=== PATIENT | female | born 1970 | race Hispanic/Latino ===

== ENCOUNTER 2017-06-30 16:45 | Emergency (ER) | payer MEDICARE ==
[~2017-06-30 16:45] MED LIST: BUPR100T6 PO; CALC-1105 PO; DOCU100C33 PO; ENAL1TAB11 PO; EVER10TA PO; EXEM25TA PO; FA/M1TAB32 PO; HYDR-4064 PO; LORA2TAB2 PO; POLY119P2 PO
[2017-06-30] MEDS ORDERED: ACETAMINOPHEN EXTRA STRENGTH 500 MG TABLET ONE (17:23)
[2017-06-30] MEDS ORDERED: TETANUS/DIPHTHERIA TOXOID [ADULT] 0.5 ML VIAL IM ONE (17:23)
[2017-06-30] MEDS ORDERED: LIDOCAINE 2%-EPI 1:200,000 20 ML VIAL IJ ONE (17:23)
== END 2017-06-30 19:58 | disposition home or self-care (01) ==
LOC: EDH 16:45
DX: S06.0X0A Concussion without loss of consciousness, initial encounter (principal); S01.81XA Laceration without foreign body of other part of head, initial encounter; S80.212A Abrasion, left knee, initial encounter; S50.311A Abrasion of right elbow, initial encounter; C79.51 Secondary malignant neoplasm of bone; I10 Essential (primary) hypertension; Z85.3 Personal history of malignant neoplasm of breast; Z88.7 Allergy status to serum and vaccine; W18.39XA Other fall on same level, initial encounter; Y93.01 Activity, walking, marching and hiking; Y92.89 Other specified places as the place of occurrence of the external cause; Y99.8 Other external cause status
CPT/HCPCS: 12052; 70450; 72125; 90471; 90714; 99284; J3490

== ENCOUNTER 2017-08-02 10:35 | Emergency (ER) | payer MEDICARE ==
[2017-08-02] MEDS ORDERED: HYDROMORPHONE 1 MG/1 ML AMP ONE (10:55)
[2017-08-02] MEDS ORDERED: ONDANSETRON ODT 4 MG TAB ONE (10:55)
== END 2017-08-02 12:29 | disposition home or self-care (01) ==
LOC: EDH 10:35
DX: C50.919 Malignant neoplasm of unspecified site of unspecified female breast (principal); M54.9 Dorsalgia, unspecified; I10 Essential (primary) hypertension
CPT/HCPCS: 72128; 96372; 99284; J1170

== ENCOUNTER 2019-01-12 10:26 | Observation (INO) | payer MEDICARE ==
[~2019-01-12] VITALS: Ht 167.6 cm; Wt 65.8 kg
[2019-01-12 11:04] LABS: BASOPHILS % (AUTO) 1.3 % (0.0-5.0); EOSINOPHILS % (AUTO) 0.3 % (0.0-8.0); HEMATOCRIT 29.6 % (36-48); LYMPHOCYTES % (AUTO) 22.5 % (21.0-51.0); MEAN CORPUSCULAR HEMOGLOBIN 31.3 pg (27.0-33.0); MEAN CORPUSCULAR HGB CONC 34.2 g/dL (32.0-36.0); MEAN CORPUSCULAR VOLUME 91.5 fL (79-99); MONOCYTES % (AUTO) 3.5 % (3.0-13.0); NEUTROPHILS % (AUTO) 72.4 % (40.0-77.0); NUCLEATED RED BLOOD CELLS 0.1 % (0.0-0.19); PLATELET COUNT (AUTO) 136 K/uL (130-400); RED BLOOD CELL COUNT(AUTO) 3.24 MIL/uL (4.00-5.50); RED CELL DISTRIBUTION WIDTH 14.3 % (11.0-15.5); WHITE BLOOD COUNT (AUTO) 2.2 K/uL (4.8-10.8)
[2019-01-12] MEDS ORDERED: FUROSEMIDE 10 MG/ML 4ML VIAL ONE (11:15)
[2019-01-12] MEDS ORDERED: ALBUMIN (HUMAN) 25% 0 ML IV ONE (11:31)
[2019-01-12 11:34] LABS: CREATININE 0.9 mg/dL (0.5-1.5); POTASSIUM 4.3 mmol/L (3.5-5.1)
[2019-01-12 11:37] LABS: B-TYPE NATRIURETIC PEPTIDE 16 pg/mL (0-100)
[2019-01-12 11:40] LABS: ALBUMIN 2.7 g/dL (3.5-5.0); BILIRUBIN,DIRECT 0.1 mg/dL (0.0-0.3); TOTAL PROTEIN, SERUM 7.5 g/dL (6.0-8.3)
[2019-01-12 11:48] LABS: LYMPHOCYTES % (MANUAL) 29 % (22-44); MAN.DIFF COMMENT-IMPRESSION MANUAL DIFFERENTIAL; MONOCYTES % (MANUAL) 4 % (2-9); SEGMENTED NEUTROPHILS % 67 % (40-70)
[2019-01-12 11:49] LABS: PLATELET MORPHOLOGY COMMENT ADEQUATE
[2019-01-12 11:55] LABS: APPEARANCE,URINE Clear (CLEAR); BILIRUBIN,URINE Negative (NEGATIVE); COLOR,URINE Dark Yellow (YELLOW); GLUCOSE, URINE (UA) Negative (NEGATIVE); KETONES,URINE Negative (NEGATIVE); LEUKOCYTE ESTERASE ,URINE Small (NEGATIVE); NITRATE,URINE Negative (NEGATIVE); OCCULT BLOOD,URINE Negative (NEGATIVE); PROTEIN,URINE Negative (NEGATIVE)
[2019-01-12 12:01] LABS: BACTERIA,URINE Rare /HPF (None Seen); MUCUS,URINE Rare LPF (None Seen); RBC,URINE 0-1 /HPF (0-1); SQUAMOUS EPITHELIAL CELL,UR Rare /HPF (0-2)
[2019-01-12 12:04] LABS: BILIRUBIN,TOTAL 0.5 mg/dL (0.2-1.0)
[2019-01-12] MEDS ORDERED: MORPHINE SULFATE 4 MG/1ML SYG ONE (12:37)
[2019-01-12] MEDS ORDERED: ACETAMINOPHEN 325 MG TAB PO PRN ×2 (14:45)
[2019-01-12] MEDS ORDERED: HYDRALAZINE HCL 20 MG/ML VIAL IV PRN (14:45)
[2019-01-12] MEDS ORDERED: ONDANSETRON HCL 4 MG/2 ML VIAL IV PRN (14:45)
[2019-01-12] MEDS ORDERED: MORPHINE SULFATE 2 MG/ML 1ML SYG IM PRN (16:00)
[2019-01-12] MEDS ORDERED: FENTANYL 100 MCG/HR PATCH TD SCH (16:00)
[2019-01-12] MEDS ORDERED: FENTANYL 100 MCG/HR PATCH TD ONE (17:15)
[2019-01-12] MEDS ORDERED: MORPHINE SULFATE 2 MG/ML 1ML SYG ONE (17:24)
[2019-01-12 18:55] VITALS: BP 108/66
--- NOTE | 2019-01-12 20:30 | NUR ---
Telemetry monitoring refused, SCD refused. Pt signed refusal form. Addendum: 01/13/19 at 0314 by SCARLETT CRESPO RN Pt refused vital signs monitoring at 11:00pm, refused to be rounded every hour.
[2019-01-12] MEDS: FUROSEMIDE 10 MG/ML 4ML VIAL IVP SCH (20:33)
[2019-01-12] MEDS: FAMOTIDINE/PF 20 MG/2 ML VIAL IV SCH (20:33)
--- NOTE | 2019-01-12 21:00 | NUR ---
re: fentanyl patch - Pt says that she applied her own fetanyl patch at home yesterday 01/11/2019
[2019-01-12] MEDS: MORPHINE SULFATE 2 MG/ML 1ML SYG IV PRN (22:18)
[2019-01-13 04:21] VITALS: BP 109/63
[2019-01-13 07:00] VITALS: BP 113/74
[2019-01-13] MEDS ORDERED: IPRATROPIUM/ALBUTEROL SULFATE 3 ML SOLUTION IH PRN (07:45)
--- NOTE | 2019-01-13 07:50 | NUR ---
RECEIVED PATIENT IN BED ALERT AND AWAKE REPORTING CONSTANT PAIN TO THE LEFT BACK. SHE IS ON ROOM AIR WITH NO ACUTE DISTRESS. PATIENT SEEMS VERY UPSET AND UNHAPPY, CALM REASSURANCE WAS PROVIDED AND THE PLAN OF CARE WAS EXPLAINED TO THE PATIENT AND SHE VERBALIZED UNDERSTANDING. WILL ADMINISTER PAIN MEDICATION ORDERED.
[2019-01-13] MEDS: FUROSEMIDE 10 MG/ML 4ML VIAL IVP SCH (08:02)
[2019-01-13] MEDS: FAMOTIDINE/PF 20 MG/2 ML VIAL IV SCH (08:02)
[2019-01-13] MEDS: MORPHINE SULFATE 2 MG/ML 1ML SYG IV PRN ×2 (08:04→12:08)
[2019-01-13] MEDS ORDERED: LORAZEPAM 2 MG TABLET PO PRN (08:45)
[2019-01-13] MEDS ORDERED: CALCIUM 600 + VITAMIN D 400 TABLET PO SCH (09:00)
[2019-01-13] MEDS ORDERED: HYDROCHLOROTHIAZIDE 25 MG TABLET PO SCH (09:00)
[2019-01-13] MEDS ORDERED: DOCUSATE SODIUM 100 MG CAP PO SCH (09:00)
[2019-01-13] MEDS ORDERED: FENTANYL 100 MCG/HR PATCH TD SCH (09:00)
[2019-01-13] MEDS ORDERED: ENALAPRIL MALEATE 10 MG TABLET PO SCH ×2 (09:00)
[2019-01-13] MEDS ORDERED: POLYETHYLENE GLYCOL 3350 17 GM POWD.PACK PO SCH (09:00)
[2019-01-13] MEDS ORDERED: BUPROPION HCL 100 MG PO SCH (09:00)
[2019-01-13] MEDS ORDERED: PANT40TA25 PO (10:29)
[2019-01-13] MEDS ORDERED: PALB125C PO (10:29)
[2019-01-13] MEDS ORDERED: FENT-77 TD (10:29)
[2019-01-13] MEDS ORDERED: NON-FORMULARY MEDICATION 1 EACH (Fentanyl 1 EACH) TD SCH (10:45)
[2019-01-13] MEDS ORDERED: HYDROCODONE/ACETAMINOPHEN 7.5/325 MG TAB PO PRN (10:45)
[2019-01-13 11:00] VITALS: BP 119/72
--- NOTE | 2019-01-13 16:00 | NUR ---
INIITAL BRIEFLY MET W PATIENT, GETTING READY FOR DISCHARGE, CAME TO HAVE A MALINGANT PLEURAL EFFUSION TAPPED, BUT THE PLAN WAS CHANGED, BEING DISCHARGED TO [facility] IN CARE OF HER SON WHO IS HER PROIDER- PT IS AAOX3, INDP OF ADLS, NO MOBILITY ISSUES, NO HH, SON IS PROIVDER; DCP HOME Addendum: 01/13/19 at 1751 by ESTRELLA QUILES RN CM Amended: Links added.
--- NOTE | 2019-01-13 16:37 | NUR ---
DISCHARGE INSTRUCTIONS WAS PROVIDED TO THE PATIENT WITH SCHEDULED FOLLOW-UP APPOINTMENT AND SHE VERBALIZED UNDERSTANDING. IV ACCESS WAS REMOVED WITHOUT COMPLICATION AND THE PATIENT LEFT THE UNIT IN STABLE CONDITION SELF CARE.
[2019-01-13] MEDS ORDERED: LORAZEPAM 2 MG TABLET PO SCH (21:00)
[2019-01-14] MEDS ORDERED: Exemestane 25 MG PO SCH (12:00)
== END 2019-01-13 16:00 | disposition home or self-care (01) ==
LOC: EDH 10:26 → EDHIP 14:44 → INTOOBSV 14:44 → 3BH 18:47
PROVIDERS: ADMIT Internal Medicine; ATTEND Internal Medicine
DX: M54.6 Pain in thoracic spine (principal); J91.0 Malignant pleural effusion; C50.912 Malignant neoplasm of unspecified site of left female breast; C79.51 Secondary malignant neoplasm of bone; C78.00 Secondary malignant neoplasm of unspecified lung; G89.3 Neoplasm related pain (acute) (chronic); I11.9 Hypertensive heart disease without heart failure; R00.0 Tachycardia, unspecified; R94.31 Abnormal electrocardiogram [ECG] [EKG]; M87.9 Osteonecrosis, unspecified; F32.9 Major depressive disorder, single episode, unspecified; Z92.21 Personal history of antineoplastic chemotherapy; Z92.3 Personal history of irradiation; Z98.890 Other specified postprocedural states; Z79.899 Other long term (current) drug therapy; Z66 Do not resuscitate
CPT/HCPCS: 36415; 71250; 80048; 80076; 81001; 83880; 84484; 85025; 93005; 94664; 96374; 96375; 96376; 99284; G0378; J1940 ×3; J2270; J3490 ×2; P9046